=== PATIENT | female | born 1995 | race Caucasian/White ===

== ENCOUNTER 2018-12-07 07:43 | Day surgery (SDC) | payer OTHER ==
[2018-12-01 09:53] VITALS: BMI 22.6
[2018-12-07 08:29] VITALS: RESP 18
[2018-12-07] MEDS ORDERED: Lactated Ringer's 1,000 ML IV ONE ×2 (08:41→12:00)
--- NOTE | 2018-12-07 09:19 | CP.PCM.PN ---
Subjective - Date & Time of Evaluation Date of Evaluation: 12/07/18 Time of Evaluation: 09:16 - Subjective Subjective: Podiatry SDS Progress Note: Dr. Sanford 23 year old female patient, with no PMHx , seen and evaluated in SDS of L foot excision of accessory navicular, advancement of PT tendon w/synovectomy. Patient states that she has had pain to the area ever since she sprained her ankle. She states that she has remained NPO since last night. She denies any nausea/vomitting/fever/chest pain/shortness of breath. Objective - Vital Signs/Intake and Output Vital Signs (last 24 hours): Temp Pulse Resp BP Pulse Ox 97.8 F 66 18 91/56 L 100 12/07/18 08:27 12/07/18 08:27 12/07/18 08:27 12/07/18 08:27 12/07/18 08:27 - Constitutional Appears: Non-toxic, No Acute Distress - Head Exam Head Exam: ATRAUMATIC, NORMOCEPHALIC - Extremities Exam Additional comments: Left lower extremity exam: Vascular: DP/PT 2/4, CFT <3 secs x 5, TG warm to warm, no edema or erythema noted. neuro: protective sensation intact via ipswich 4/ derm: no open lesions, no clinical signs of infection ortho: pain with palpation at the navicular, no pain with ROM of the AJ or STJ - Neurological Exam Neurological Exam: Alert, Awake, Oriented x3 - Psychiatric Exam Psychiatric exam: Normal Affect, Normal Mood - Skin Skin Exam: Warm Assessment and Plan - Assessment and Plan (Free Text) Assessment: 23 year old female patient, with no PMHx , seen and evaluated in SDS of L foot excision of accessory navicular, advancement of PT tendon w/synovectomy. Plan: Pt was seen and examined in SDS Pt NPO status was confirmed All pre-op testing and clearance in chart Pt has exhausted all conservative treatment at this time and is opting for surgical intervention Pt was explained procedure and post-operative course All pt's questions were answered to satisfaction No guarantees were made Pt understands all risks, benefits and complications of procedure Pt will follow-up with Dr. Sanford within 1 week of surgery
--- NOTE | 2018-12-07 09:21 | CP.SDSHP ---
Same Day Surgery H & P - History Proposed Procedure: L foot excision of accessory navicular, advancement of PT tendon w/synovectomy. Pre-Op Diagnosis: Left foot accessory nacvicular with pain - Allergies Allergies: Allergies Latex, Natural Rubber Allergy (Verified 12/07/18 08:24) ITCHING w rash - Physical Exam Vital Signs: Vital Signs 12/07/18 08:27 Temperature 97.8 F Pulse Rate 66 Respiratory 18 Rate Blood Pressure 91/56 L O2 Sat by Pulse 100 Oximetry Mental Status: Alert & Oriented x3 Neuro: WNL Heart: WNL Lungs: WNL - Impression Pt. Evaluated Today:Candidate for Anesthesia & Procedure: Yes - Date & Time Date: 12/07/18 Time: 09:21 Short Stay Discharge - Short Stay Discharge Admitting Diagnosis/Reason for Visit: M67.822 Disposition: HOME/ ROUTINE Additional Instructions (Diet, Activity): -Patient in good/stable condition for discharge home -Pt to resume medications per medical reconciliation -Resume regular diet -Please keep dressing clean, dry, & intact to surgical site -Use plastic bag over bandage for showering -Wear post op shoe at all times when ambulating -Call clinic if you see signs of infection (redness, swelling, malodor) -Please make an appointment to see Dr. Sanford in office/clinic within 1 week for post-op check Progress Note/Discharge Note with Instructions: - Patient evaluated bedside in recovery s/p left foot surgery - After surgical procedure patient in NAD - (+) Void, (+) Appetite - Capillary refill time <3s and NVS intact. - Patient denies complaints at this time. - Post operative instructions and plan of care explained to patient at length. - Patient. acknowledges verbal understanding. - Patient stable for DC per podiatric surgery
[2018-12-07] MEDS ORDERED: ceFAZolin IV 1 gm in Dextrose 1 GM/50 ML BAG IVPB ONE (09:24)
[2018-12-07] MEDS ORDERED: Lidocaine 1% Inj (20ml) ONE (09:24)
[2018-12-07] MEDS ORDERED: Bupivacaine 0.5% Inj(30mL) ONE (09:25)
[2018-12-07] MEDS ORDERED: Bupivacaine 0.5% Inj(30mL) IJ ONE (09:28)
[2018-12-07] MEDS ORDERED: Bupivacaine 0.25%-Epinephrine 1:200,000 (30 ml) Inj ONE (09:28)
[2018-12-07] MEDS ORDERED: Lidocaine 1% Inj (20ml) IJ ONE (09:28)
[2018-12-07] MEDS ORDERED: ceFAZolin 1 GM in Sodium Chloride 0.9% 100 ML IVPB STA (09:28)
[2018-12-07] MEDS ORDERED: Sodium Chloride 0.9% 1,000 ML IV SCH (09:30)
[2018-12-07] MEDS ORDERED: Propofol 10 mg/ml Inj (20 ML) ONE (09:32)
[2018-12-07] MEDS ORDERED: Midazolam 2 MG/2 ML VIAL ONE (09:33)
[2018-12-07] MEDS ORDERED: Rocuronium 10 mg/ml (5 ml) ONE (09:42)
[2018-12-07] MEDS ORDERED: Succinylcholine Chloride 20 mg/ml Syr (5 ml) IV ONE (09:42)
[2018-12-07] MEDS ORDERED: Lidocaine 4% (Laryng-O-Jet) Kit MM ONE (09:55)
[2018-12-07] MEDS ORDERED: Dexamethasone 4 mg/1 ml ONE ×2 (10:31→12:33)
[2018-12-07] MEDS ORDERED: Neostigmine 1:1000 (1 mg/ml) Inj ONE (12:08)
[2018-12-07] MEDS ORDERED: Dexamethasone 4 mg/1 ml IM ONE (12:40)
--- NOTE | 2018-12-07 12:56 | PCM.SURG1 ---
Surgeon's Initial Post Op Note - Surgeon's Notes Surgeon: Dr. Jessica Sanfodr Classroom Coordinator: Dr. Sarina Lopez PGY-3, Dr. Rosemarie Simpson PGY-2, Dr. Jn Linder PGY-1 Type of Anesthesia: General Endo, Block Regional, Local Anesthesia Administered By: Dr. Godwin Mims Pre-Operative Diagnosis: left foot accessory navicular bone, left posterior tibial tendinitis Operative Findings: I: 20cc 0.5% Marcaine plain, 1 cc Dexamethasone Phosphate 4mg/mL. M: Arthrex 2.6 Fibertak anchor, 2-0 Vicryl, 4-0 Vicryl, 4-0 Prolene, betadine-soaked Adaptic, DSD, plantarflexed and inverted bi-valved cast Post-Operative Diagnosis: same Operation Performed: left foot excision of accessory navicular bone, reattachment of posterior tibial tendon to navicular with use of bone anchor, debridement of posterior tibial tendon Specimen/Specimens Removed: left foot navicular bone Estimated Blood Loss: EBL {In ML}: 5 Blood Products Given: N/A Drains Used: No Drains Post-Op Condition: Good Date of Surgery/Procedure: 12/07/18 Time of Surgery/Procedure: 12:56
[2018-12-07] MEDS ORDERED: HYDROmorphone 0.5 mg/0.5 ml ISec IVP PRN (12:57)
[2018-12-07] MEDS ORDERED: Oxycodone/Acetaminophen 5/325 mg Tab PO PRN ×2 (12:57)
--- NOTE | 2018-12-07 13:00 | PCM.ANESB2 ---
Popliteal Nerve Block - Popliteal Nerve Block Date of Procedure: 12/07/18 Anesthesiologist: Godwin Mims Pre-Procedure Diagnosis: Left foot pain Post-Procedure Diagnosis: Same Procedure Performed: Popliteal Nerve Block Left - Procedure Popliteal Nerve Block: This procedure was explained to the patient that it is for post-operative pain management. Consent was obtained after a thorough discussion with the patient regarding the benefits and possible complications of local anesthetic block of the sciatic nerve at the popliteal level. The patient was brought to the operating room and standard monitors are applied. Time-out was held with the circulating nurse to confirm the correct surgery and the appropriate block. After applying oxygen by nasal cannula and administering IV Sedation, patient's operative leg was gently raised and supported and the groove in between the biceps femoris and vastus lateralis muscles was carefully palpated. The skin approximately 8cm above the popliteal crease was then marked. The ultrasound transducer was then applied to the posterior thigh approximately 8cm above the popliteal crease in the transverse plane and the sciatic nerve before its division was visualized lateral to the popliteal artery and in between the bicep femoris and semimembranosus/semitendinosus muscles. After identification, the lateral portion of the thigh was prepped with Chloraprep and Lidocaine 1% was injected subcutaneously for topical anesthesia. At this point, a # 21 gauge Stimuplex insulated 4 inch needle was inserted into pre-marked area and advanced in a perpendicular direction. The needle was inserted above the ultrasound transducer in-plane towards the sciatic nerve in a [id number] direction. Needle advancement was performed carefully under direct ultrasound visualization. Nerve stimulator was used and dorsiflexion of the Left foot was elicited at a current of __0.3___ MA. After repeated negative aspiration, __30___cc of _0.25____ % bupivacaine with [id number] epinephrine was injected in 5cc aliquots. Under ultrasound guidance the local anesthetics were observed surrounding sciatic nerve . The needle was removed intact and sterile dressing was applied. The patient tolerated the popliteal nerve block well with stable vital signs and was subsequently prepared for the surgery.
[2018-12-07 15:20] VITALS: BP 111/71; PULSE 99; TEMP 97.5; O2SAT 100
--- NOTE | 2018-12-11 15:35 | OP ---
PROCEDURE DATE: 12/07/2018 SURGEON: Marialuisa Sanford DPM. ASSISTANTS: Sarina Lopez DPM PGY-3, Dr. Rosemarie Ramos DPM PGY-2, Dr. Jn Linder DPM PGY-1. GREENHOUSE STAFF: Maya Mims MD. ANESTHESIA: General endotracheal, regional popliteal block and local block. PREOPERATIVE DIAGNOSES: 1. Accessory navicular of left foot. 2. Synovitis and longitudinal tears of posterior tibial tendon at insertion. POSTOPERATIVE DIAGNOSES: 1. Accessory navicular of left foot. 2. Synovitis and longitudinal tears of posterior tibial tendon at insertion. PROCEDURES: 1. Excision of accessory navicular bone, left foot. 2. Debridement of enlarged navicular bone, left foot. 3. Repair and reattachment of posterior tibial tendon at navicular, left foot. INDICATIONS: The patient is a 23-year-old female with the above-mentioned diagnoses. The patient has exhausted all conservative treatment at this time and now requests surgical intervention. The patient signed the consent after careful explanation of all risks, benefits, complications, and alternatives for surgical procedure. No guarantees were given nor implied. Ancef IV was given to the patient prior to the procedure. N.p.o. status was confirmed prior to bringing the patient to the OR. PREPARATION: The patient was brought to the operating room and placed on the operating table in a supine position. A well-padded pneumatic thigh tourniquet was placed to the patient's left ankle with plenty of Webril cast padding. After induction of sedation, the patient's left foot and ankle was draped in the usual sterile manner. Approximately 10 mL of 0.5% Marcaine was introduced in local block fashion in a saphenous distribution of the patient's left foot and ankle. Esmarch was utilized to exsanguinate the patient's left foot. A pneumatic ankle tourniquet was then inflated to 300 mmHg and the procedure began. PROCEDURE #1: EXCISION OF ACCESSORY NAVICULAR BONE, LEFT FOOT: Our attention was then directed to the patient's left foot where a prominent accessory navicular bone could be palpated at the insertion of the posterior tibial tendon. An approximately 6 cm linear longitudinal incision was made starting at the medial aspect of the accessory navicular and coursing proximally towards the medial malleolus. Care was taken to avoid all vital neurovascular structures. All bleeders were cauterized as necessary. Care was taken to deepen the incision using the combination of sharp and blunt tissue dissection. At this time, the accessory navicular in question was located and confirmed using intraoperative fluoroscopy and the overlying periosteal tissue was reflected medially and laterally from the accessory navicular bone. The accessory navicular bone was excised in total and peeled away from the posterior tibial tendon without disrupting the insertion of the posterior tibial tendon. The accessory navicular was then passed from the operative field and sent for pathology. PROCEDURE #2: DEBRIDEMENT OF AN ENLARGED NAVICULAR BONE, LEFT FOOT: Next, utilizing the same incision, a reciprocating rasp on power was utilized to smooth any roughened or sharp edges of the the navicular bone at its medical aspect. Once the contour of the bone was redefined, the surgical site was copiously lavaged with sterile normal saline thus removing any debris. PROCEDURE #3: REPAIR AND REATTACHMENT OF POSTERIOR TIBIAL TENDON AT NAVICULAR, Left foot: At this time using a malleable retractor, the course of the posterior tibial tendon was inspected from its insertion and examined proximally to the retromalleolar area. A small partial thickness longitudinal tear of the tendon was identified. All synovitis tissue was excised at this time (of which there was minimal). Next, a 2.6-mm Arthrex Fibertak was seated using a mallet into the medial aspect of the navicular bone, near the insertion of the posterior tibial tendon. Once it was properly seated, the pre-loaded FiberTape was then used to repair the aforementioned partial longitudinal tear of the posterior tibial tendon, using a running interlocking suture technique. This was then tightened down and tied to the navicular bone with excellent correction of the deformity noted at this time. The surgical site was then flushed with copious amounts of sterile normal saline solution. The capsular tissue was reapproximated using 2-0 Vicryl, subcutaneous tissue reapproximated using 3-0 Vicryl and skin edges repaired using 4-0 Prolene suture. The surgical site was then injected with an additional 10 mL of 0.5% Marcaine plain and 1 mL of dexamethasone phosphate 4 mg was then injected to the skin edges. The incision was dressed with Betadine-soaked, 4 x 4 gauze, darleen and a well-padded below-knee bi-valved cast with the foot positioned in a plantarflexed and inverted position was applied at this time. POSTOPERATIVE CONDITION: The patient tolerated the procedure and the anesthesia well with no apparent complications or complaints. The patient was escorted from the OR to the recovery room with vital signs stable and neurovascular structures intact to the patient's left lower extremity. The patient will be strictly nonweightbearing in a cast and crutches. The patient will follow up with Dr. Sanford in the office within one week. Sarina Lopez DPM Marialuisa Sanford DPM MATT
== END 2018-12-07 15:45 | disposition home or self-care (01) ==
LOC: H.OPSURG 07:43
PROVIDERS: ATTEND Podiatrist Sports Medicine
DX: M67.822 Other specified disorders of synovium, left elbow (principal); F32.9 Major depressive disorder, single episode, unspecified; M65.88 Other synovitis and tenosynovitis, other site; M76.822 Posterior tibial tendinitis, left leg; Q74.2 Other congenital malformations of lower limb(s), including pelvic girdle
CPT/HCPCS: 28090; 28238; 88304; J0690; J1100; J2001; J2250; J2405; J2704; J2710; J3010; J7120